=== PATIENT | female | born 1940 | race Caucasian/White ===

== ENCOUNTER 2019-05-23 18:07 | Emergency (ER) | payer MEDICARE, MEDICAID, SELFPAY ==
[2019-05-23 18:43] VITALS: BP 102/67; PULSE 86; RESP 18; TEMP 36.6; O2SAT 97; BMI 29.9
[2019-05-23 20:59] VITALS: BP 112/71; PULSE 71; RESP 18; O2SAT 98
--- NOTE | 2019-05-23 22:44 | ED_ITS ---
Entered by Sarah Nolen, acting as scribe for Jacob Love MD May 23, 2019 18:07 HPI - Female Genitourinary General: Chief complaint: Urogenital-Female Stated complaint: blood in urine Time Seen by Provider: 05/23/19 22:34 Source: patient and family Mode of arrival: wheelchair Limitations: no limitations History of Present Illness: HPI Narrative: 78 yo f came to the er p[facility] with family for blood in urine. Onset was a few weeks ago. Pts family states that she has had some urinary incontinence as well. MD elicited complaint: urinary incontinence Onset (ago): week(s) (2-3 weeks ago) Severity: mild Consistency: intermittent Vaginal discharge: none Vaginal bleeding: none Urinary symptoms: Hematuria Exacerbating factors: none Relieving factors: none Associated symptoms: Deny abdominal pain or headache(s) Patient : No Review of Systems Const: Denies: fever or chills Eyes: Denies: change in vision ENMT: Denies: throat pain or mouth pain Card: Denies: chest pain Resp: Denies: shortness of breath GI: Denies: abdominal pain : Reports: urinary incontinence; Denies: difficulty urinating Musc: Denies: back pain or joint pain Skin/Breast: Denies: rash Neuro: Denies: headache Psych: Denies: depression Endo: Denies: excessive urination Ki/Lymph: Denies: easy bruising All/Imm: Denies: hives PFSH ED PFSH: Statuses (acute, chronic, etc) shown below reflect problem list status as previously entered and may not be historically accurate Social History Smoking and tobacco status: never smoked Physical Exam Const: COMMON NORMALS: no apparent distress and healthy appearing HENMT: COMMON NORMALS: normocephalic and external nose normal HEAD & SCALP: normocephalic NOSE: external nose normal and no nasal discharge (nasal dischage) Eye: COMMON NORMALS: PERRL PUPIL: Yes PERRL Neck/C-Spine: COMMON NORMALS: full ROM and no lymphadenopathy Chest: COMMONS NORMALS: inspection of chest normal Resp: COMMON NORMALS: normal respiratory effort and clear to auscultation bilaterally AUSCULTATION: clear to auscultation bilaterally Cardio: COMMON NORMALS: regular rate and regular rhythm RATE: regular rate RHYTHM: regular rhythm GI: COMMON NORMALS: soft to palpation PALPATION: Yes soft Extremity: COMMON NORMALS: normal to inspection, full ROM and normal capillary refill Psych: COMMON NORMALS: mental status grossly normal and cooperative Skin: COMMON NORMALS: no rashes or lesions noted GENERAL SKIN EXAM: no rashes or lesions noted Course Vital Signs: Vital signs: Vital Signs Temperature 97.8 F 05/23/19 18:43 Pulse Rate 62 05/23/19 23:33 Respiratory Rate 18 05/23/19 23:33 Blood Pressure 124/82 05/23/19 23:33 Pulse Oximetry 97 05/23/19 23:33 MDM - Female MDM Narrative: Medical decision making narrative: Patient presents here with suppose it blood in her urine. She has no sign of UTI no blood in her urine here. Patient does have quite excoriation to her skin and dry skin likely has blood coming from that. She is to use Desitin cream along with baby powder. Patient is well-appearing and has no abdominal pain and exam is benign. Patient is stable for discharge and return if worsening. Lab Data: Labs: Lab Results 05/23/19 Range/Units 23:55 Urine Color Yellow (Yellow) Urine Appearance Clear (CLEAR) Urine pH 5 (5-7) Ur Specific Gravit y 1.030 (1.005-1.030) Urine Protein Neg (Negative) Urine Glucose (UA) Norm (Normal) Urine Ketones 1+ H (Negative) Urine Occult Blood Neg (Negative) Urine Nitrate Negative (Negative) Urine Bilirubin Neg (NEGATIVE) Urine Urobilinogen Norm (Negative) mg/dL Ur Leukocyte Kaila ase Negative (Negative) Urine RBC 0-4 H (0-2) /hpf Urine WBC None (0-5) /hpf Ur Squamous Epith Cells 0-4 H (0-5) Urine Bacteria Trace (NONE) Discharge Plan Discharge Patient Disposition: Home, Self-Care Clinical Impression: Dysuria Condition: Stable Discharge Orders: Discharge Order (Routine); Ordered 05/24/19 Ordered By: Jacob Love Referrals: Jelly Dotson FNP-C [Primary Care Provider] - Discharge Diet: Advance as tolerated Discharge Activity: Resume usual activity Patient Instructions: Dysuria (ED) Coding Level of Care Code ED Programmable Logic Controller Assembler for Chg Fwd Exam Problem Focused The documentation recorded by the scribe, Nolen,Sarah Mai, accurately reflects the service I personally performed and the decisions made by me, Jacob Love MD May 23, 2019 18:07
[2019-05-23 23:33] VITALS: BP 124/82; PULSE 62; RESP 18; O2SAT 96; O2SAT 97
[2019-05-24 00:27] LABS: Bilirubin Urine Neg (NEGATIVE); Blood Urine Neg (Negative); Glucose Urine UA Norm (Normal); Ketones Urine 1+ (Negative); Leukocyte Esterase Urine Negative (Negative); Nitrate Urine Negative (Negative); Protein Urine Neg (Negative); Urine Appearance Clear (CLEAR); Urine Color Yellow (Yellow); Urobilinogen Urine Norm (Negative); pH Urine 5 (5-7)
[2019-05-24 00:28] LABS: Add Urine Culture? No; Bacteria Urine TRACE; RBC Urine 0-4 /hpf (0-2); Squamous Epithelial Cell Urine 0-4 (0-5)
[2019-05-24 01:04] VITALS: BP 125/84; PULSE 66; RESP 12; O2SAT 96
== END 2019-05-24 01:05 | disposition home or self-care (01) ==
PROVIDERS: Emergency Provider Emergency Medicine; Family Provider Nurse Practitioner; PCP Nurse Practitioner
DX: R30.0 Dysuria (principal)
CPT/HCPCS: 51702; 51798; 81001; 99282

== ENCOUNTER 2019-09-01 13:09 | Emergency (ER) | payer MEDICARE, MEDICAID, SELFPAY ==
[2019-09-01 13:10] VITALS: BP 148/83; PULSE 81; RESP 18; TEMP 37; O2SAT 98; BMI 36.6
--- NOTE | 2019-09-01 13:13 | XR_ITS ---
WS: [id number] PORTABLE CHEST HISTORY: cough COMPARISON: 01/27/2019 Mild hyperexpansion. No pneumonia. No pleural effusion or pneumothorax. Cardiac size: Normal. Mediastinum/Aorta: Mild atherosclerosis aorta. Prior healed rib fracture in the mid RIGHT thorax. XR/XR chest 1V portable [id number] IMPRESSION: Unremarkable portable chest.
--- NOTE | 2019-09-01 13:13 | ECG_ITS ---
Measurements Intervals [place] Rate: 82 P: -83 [place]: 87 QRS: 160 QRSD: 85 T: 107 QT: 372 QTc: 436 SINUS RHYTHM LIMB LEAD REVERSAL LATERAL MYOCARDIAL INFARCTION , OF INDETERMINATE AGE (ASSUMING NO LEAD REVERSAL) Compared to ECG 01/28/2019 01:44:01 Myocardial infarct finding now present Intraventricular conduction delay no longer present T-wave abnormality no longer present Electronically Signed On 09-01-2019 20:59:17 CDT by Katey Camejo M.D. [id number]
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
[2019-09-01 13:31] LABS: Basophils % 0.4 %; Eosinophils # 0.1 10^3/uL (0.0-0.8); Eosinophils % 0.8 %; Hematocrit 38.1 % (37.0-47.0); Hemoglobin 11.4 g/dL (11.5-15.3); Lymphocytes # 0.6 10^3/uL (0.8-4.8); Lymphocytes % 7.4 %; Mean Corpuscular HGB Conc 29.9 g/dL (30.0-36.0); Mean Corpuscular Hemoglobin 33.2 pg (28.0-34.0); Mean Corpuscular Volume 111.1 fL (81-99); Mean Platelet Volume 11.4 fL (7.4-10.4); Monocytes # 0.2 10^3/uL (0.2-0.9); Monocytes % 3.2 %; Neutrophils # 6.6 10^3/uL (1.8-7.7); Neutrophils % 87.8 %; Nucleated Red Blood Cells % 0 %; Platelet Count 243 10^3/cmm (130-400); Red Blood Count 3.43 10^6/uL (4.1-5.3); Red Cell Distribution Width 12.9 % (12.1-15.1); White Blood Count 7.5 10^3/uL (4.0-10.0)
[2019-09-01 13:49] LABS: Alanine Aminotransferase 25 U/L (0-33); Albumin Level 4.3 g/dL (3.5-5.2); Alkaline Phosphatase 142 IU/L (35-105); Anion Gap 18.2 (5-19); Aspartate Amino Transferase 28 U/L (0-32); Blood Urea Nitrogen 28 mg/dL (8-23); Calcium 9.8 mg/dL (8.5-10.5); Carbon Dioxide 22 mmol/L (22-29); Chloride 104 mmol/L (98-107); Glucose 133 mg/dL (65-115); Lipase 46 U/L (13-60); Magnesium 2.4 mg/dL (1.7-2.3); Osmolality Calculated 289 mOsm/kg (285-295); Potassium 4.2 mmol/L (3.5-5.1); Sodium 140 mmol/L (136-145); Total Bilirubin 0.5 mg/dL (0.15-1.2); Total Protein 7.3 g/dL (6.6-8.7)
[2019-09-01 13:51] LABS: Troponin(5th) Baseline 62 ng/mL (0-10)
[2019-09-01 15:21] LABS: Bacteria Urine 1+; Bilirubin Urine Neg (NEGATIVE); Blood Urine Neg (Negative); Glucose Urine UA Norm (Normal); Ketones Urine Negative (Negative); Leukocyte Esterase Urine 1+ (Negative); Nitrate Urine Negative (Negative); Protein Urine Neg (Negative); Specific Gravity, Urine 1.015 (1.005-1.030); Urine Appearance SL Hazy (CLEAR); Urine Color Yellow (Yellow); Urobilinogen Urine Norm (Negative); pH Urine 5 (5-7)
[2019-09-01 15:22] LABS: Add Urine Culture? Yes
[2019-09-01 16:11] LABS: Troponin 5 2HR 55.32 ng/mL (0-10)
[2019-09-01 16:23] LABS: Troponin 5 2HR Delta -6.68 ABS# (0-10)
[2019-09-01] MEDS: haloperidol inj 5 mg/mL INJ 1 mL 2.5 MG IM (16:31)
--- NOTE | 2019-09-01 18:15 | PC.NURSE ---
Patient to be discharged back to SNF ([facility]). Report called to Marina Alicia (ANAYA). Explained that patient was being discharged as agitation related to dementia. Dr Alicea and patient's family were in agreeance that patient is not appropriate for [facility].
--- NOTE | 2019-09-01 19:13 | ECG_ITS ---
Measurements Intervals [place] Rate: 80 P: 25 [place]: 136 QRS: 9 QRSD: 79 T: 77 QT: 386 QTc: 447 SINUS RHYTHM WITH OCCASIONAL SUPRAVENTRICULAR PREMATURE COMPLEXES NONSPECIFIC T-WAVE ABNORMALITY Compared to ECG 01/28/2019 01:44:01 Intraventricular conduction delay no longer present T-wave abnormality still present Electronically Signed On 09-01-2019 21:12:05 CDT by Katey Camejo M.D. [id number]
[2019-09-01 20:46] VITALS: PULSE 86; RESP 16; O2SAT 96
== END 2019-09-01 20:48 | disposition home or self-care (01) ==
PROVIDERS: Emergency Provider Emergency Medicine; Family Provider Nurse Practitioner; PCP Nurse Practitioner
DX: R45.1 Restlessness and agitation (principal); F03.90 Unspecified dementia, unspecified severity, without behavioral disturbance, psychotic disturbance, mood disturbance, and anxiety; I10 Essential (primary) hypertension
CPT/HCPCS: 12345; 36415; 71045; 80053; 81001; 83690; 83735; 84484; 85025; 87077; 87086; 87186; 93005; 96360; 96372; 99282; 99284; J1630